=== PATIENT | male | born 1975 | race African-American/Black ===

== ENCOUNTER 2018-10-11 22:09 | Emergency (ER) | payer SELFPAY ==
[2018-10-12] MEDS ORDERED: LIDOCAINE 4% TOPICAL SOLN 50 ML TOP ONE (00:47)
--- NOTE | 2018-10-12 00:49 | ER Document Report ---
ED Medical Screen (RME) - General Chief Complaint: Foreign Body in Ear Stated Complaint: EAR PAIN Time Seen by Provider: 10/12/18 00:45 Notes: Patient is a 43-year-old male who presents to the emergency department with a bug in his right ear. Patient states he was outside when he felt something flew into his right ear. Patient presents to the emergency department for same. Nursing staff states they have tried to flush the right ear with 20 cc of normal saline solution with no results. GENERAL: Alert, interacts well. No acute distress. ENT: Oral mucosa moist, tongue midline. There does appear to be a moving object in the right ear. I have greeted and performed a rapid initial assessment of this patient. A comprehensive ED assessment and evaluation of the patient, analysis of test results and completion of the medical decision making process will be conducted by additional ED providers. I have specifically instructed the patient or family members with the patient to immediately return to any nursing staff should anything change in the patient's condition or with their chief complaint. This medical record was dictated with voice recognizing software. There may be grammatical, syntax errors that are unintended. TRAVEL OUTSIDE OF THE [place] IN LAST 30 DAYS: No - Related Data Allergies/Adverse Reactions: No Known Allergies Allergy (Verified 10/11/18 22:22) Physical Exam - Vital signs Vitals: Temp Pulse Resp BP Pulse Ox 98.4 F 105 H 15 130/102 H 98 10/11/18 22:48 10/11/18 22:48 10/11/18 22:48 10/11/18 22:48 10/11/18 22:48 Course - Vital Signs Vital signs: Temp Pulse Resp BP Pulse Ox 98.4 F 105 H 15 130/102 H 98 10/11/18 22:48 10/11/18 22:48 10/11/18 22:48 10/11/18 22:48 10/11/18 22:48
--- NOTE | 2018-10-12 02:09 | ER Document Report ---
HPI - HPI Time Seen by Provider: 10/12/18 00:45 Pain Level: 5 Context: Patient is a 43-year-old male that comes to the emergency department for chief complaint of a bug in the right ear. He states that he was outside, he felt something fly and, he states it was flopping around and very loud. He denies pain in the ear, vomiting, discharge. He denies any other complaints. - EENT EENT: REPORTS: Ear Pain Past Medical History - General Information source: Patient - Social History Smoking Status: Current Every Day Smoker Chew tobacco use (# tins/day): No Frequency of alcohol use: Social Drug Abuse: Marijuana Lives with: Family Family History: CAD, Hypertension Patient has suicidal ideation: No Patient has homicidal ideation: No Renal/ Medical History: Denies: Hx Peritoneal Dialysis - Immunizations Immunizations up to date: Yes Hx Diphtheria, Pertussis, Tetanus Vaccination: Yes Vertical Provider Document - CONSTITUTIONAL General Appearance: WD/WN, No Apparent Distress - INFECTION CONTROL TRAVEL OUTSIDE OF THE [place] IN LAST 30 DAYS: No - HEENT HEENT: Atraumatic, Normocephalic. negative: Normal ENT Exam - There appears to be an insect with legs and weakness visible, this is near the tympanic membrane. There is no bleeding, swelling, pain, or other abnormality noted on the ear or ENT exam. - NECK Neck: Normal Inspection - RESPIRATORY Respiratory: Breath Sounds Normal, No Respiratory Distress - CARDIOVASCULAR Cardiovascular: Regular Rate, Regular Rhythm - GI/ABDOMEN Gastrointestinal: Abdomen Soft, Abdomen Non-Tender - BACK Back: Normal Inspection - MUSCULOSKELETAL/EXTREMETIES Musculoskeletal/Extremeties: MAEW, FROM, Non-Tender - NEURO Level of Consciousness: Awake, Alert, Appropriate - DERM Integumentary: Warm, Dry, No Rash Course - Re-evaluation Re-evalutation: Insect in the right ear was killed using isopropyl alcohol. Patient tolerated this very well. Afterwards the ear was flushed with lukewarm water until the insect was close to the external part of the ear canal. I used alligator forceps, grasped the insect by the tip of the thorax and removed the moth in one piece. Ear exam was normal otherwise. Patient tolerated this very well. - Vital Signs Vital signs: Temp Pulse Resp BP Pulse Ox 98.4 F 105 H 15 130/102 H 98 10/11/18 22:48 10/11/18 22:48 10/11/18 22:48 10/11/18 22:48 10/11/18 22:48 Discharge - Discharge Clinical Impression: Foreign body in ear Qualifiers: Encounter type: initial encounter Laterality: right Qualified Code(s): T16.1XXA - Foreign body in right ear, initial encounter Condition: Stable Disposition: HOME, SELF-CARE Additional Instructions: The moth was removed from your right ear. I recommend that you place peroxide or similar agent in the ear to dry out the fluid required to get this out. Do this for the next day or so. Follow-up with primary care. Return for any concerning symptoms including pain, swelling, discolored discharge, or any other concerning symptoms. Forms: Return to Work
[2018-10-12 02:18] VITALS: BP 135/95
== END 2018-10-12 02:18 | disposition home or self-care (01) ==
LOC: ER 22:09
PROC: 09C37ZZ Extirpation of Matter from Right External Auditory Canal, Via Natural or Artificial Opening (ICD-10-PCS; principal; 2018-10-11)
DX: T16.1XXA Foreign body in right ear, initial encounter (principal); X58.XXXA Exposure to other specified factors, initial encounter; Y93.9 Activity, unspecified; Y92.9 Unspecified place or not applicable; Y99.9 Unspecified external cause status; F17.200 Nicotine dependence, unspecified, uncomplicated
CPT/HCPCS: 69200; 99282; J3490